=== PATIENT | female | born 1995 | race Two or more races ===

== ENCOUNTER 2021-05-07 10:51 | Emergency (ER) | payer MEDICAID ==
[~2021-05-07] VITALS: Ht 157.5 cm; Wt 86.4 kg
[2021-05-07 12:01] LABS: COVID AG,FIA SOURCE NASAL SWAB
[2021-05-07 12:47] VITALS: BP 125/76
== END 2021-05-07 12:55 | disposition home or self-care (01) ==
LOC: EMS 10:51
DX: Z20.822 Contact with and (suspected) exposure to COVID-19 (principal)
CPT/HCPCS: 99283

== ENCOUNTER 2021-10-07 09:18 | Emergency (ER) | payer MEDICAID ==
[~2021-10-07] VITALS: Ht 162.6 cm; Wt 70.5 kg
[2021-10-07 11:18] LABS: COVID AG,FIA SOURCE NASOPHARYNGEAL
[2021-10-07 11:40] LABS: RAPID GROUP A STREP NEGATIVE (NEGATIVE)
[2021-10-07 11:46] LABS: INFLUENZA TYPE A NEGATIVE FOR TYPE A (NEGATIVE); INFLUENZA TYPE B NEGATIVE FOR TYPE B (NEGATIVE)
[2021-10-07 12:50] VITALS: BP 146/84
== END 2021-10-07 13:03 | disposition home or self-care (01) ==
LOC: EMS 09:18
DX: U07.1 COVID-19 (principal); F10.20 Alcohol dependence, uncomplicated
CPT/HCPCS: 87430; 87804; 99283